=== PATIENT | female | born 1950 | race Caucasian/White ===

== ENCOUNTER → 2018-03-17 | Outpatient (CLI) | payer BC ==
[~2018-03-17] MED LIST: CALC600T9 PO; MULTTAB58 PO
[2018-03-17 15:31] LABS: BASO % 0.7 %; BASO ABS # 0.05 K/uL (0-0.2); EOS % 0.8 %; EOS ABS # 0.06 K/uL (0-0.5); HEMATOCRIT 39.6 % (37-47); HEMOGLOBIN 13.8 g/dL (12.0-16.0); IG# 0.01 K/uL (0.00-0.02); LYMPH % 42.6 %; LYMPH ABS # 3.17 K/uL (1.2-3.4); MEAN CELL VOLUME 91.7 fL (80-100); MEAN CORPUSCULAR HEMOGLOBIN 31.9 pg (25-34); MEAN CORPUSCULAR HGB CONC 34.8 g/dl (32-36); MEAN PLATELET VOLUME 10.5 fL (7.4-10.4); MONO % 9.1 %; MONO ABS # 0.68 K/uL (0.11-0.59); NEUT % 46.7 %; NEUT ABS # 3.47 K/uL (1.4-6.5); PLATELET COUNT 213 K/uL (130-400); RED CELL DISTRIBUTION WIDTH CV 12.5 % (11.5-14.5); RED CELL DISTRIBUTION WIDTH SD 42.5 fL (36.4-46.3); WHITE BLOOD COUNT 7.44 K/uL (4.8-10.8)
[2018-03-17 15:51] LABS: BLOOD UREA NITROGEN 18 mg/dl (7-18); CALCIUM 9.7 mg/dl (8.5-10.1); CARBON DIOXIDE 28 mmol/L (21-32); CREATININE 0.97 mg/dl (0.60-1.20); GLUCOSE 76 mg/dl (70-99); POTASSIUM 3.8 mmol/L (3.5-5.1); SODIUM 138 mmol/L (136-145)
[2018-03-17 16:02] LABS: CHOLESTEROL 192 mg/dl (0-200); LDL CHOLESTEROL CALCULATED 105 mg/dl
== END | disposition home or self-care (01) ==
LOC: C.LAB1850 14:53
PROVIDERS: ATTEND Family Medicine
DX: Z00.00 Encounter for general adult medical examination without abnormal findings (principal); R23.4 Changes in skin texture; Z13.220 Encounter for screening for lipoid disorders